=== PATIENT | male | born 1960 ===

== ENCOUNTER 2021-07-28 10:29 | Day surgery (SDC) | payer OTHER ==
[~2021-07-28] VITALS: Ht 180.3 cm; Wt 93.8 kg
[2021-07-28] MEDS ORDERED: FISH OIL 1000MG1 CAP PO (11:03)
[2021-07-28] MEDS ORDERED: LIPITOR 40MG TA40 MG PO (11:03)
[2021-07-28] MEDS ORDERED: GLUCOPHAGE500 MG/TAB PO (11:03)
[2021-07-28] MEDS ORDERED: PRINIVIL40 MG PO (11:04)
[2021-07-28] MEDS ORDERED: ZYRTEC 10MG10 MG PO (11:04)
[2021-07-28] MEDS ORDERED: VITAMIN D31000 IU PO (11:04)
[2021-07-28] MEDS ORDERED: MOBIC 7.5MG7.5 MG PO (11:05)
[2021-07-28] MEDS ORDERED: GLUCOSAMINE SU500 M2 PO (11:05)
[2021-07-28] MEDS ORDERED: CENTRUM SILVER CHEW PO (11:06)
[2021-07-28 11:28] VITALS: BP 131/84; PULSE 71; TEMP 98.1
[2021-07-28] MEDS ORDERED: NORCO 325 MG-51 TAB PO (12:41)
[2021-07-28 15:10] VITALS: BP 119/80; PULSE 61; TEMP 98.4
--- NOTE | 2021-07-28 15:10 | NUR ---
Patient arrived back into [facility] following PACU. Report received from ALEJANDRA Sauceda. Patient alert and awake, no complaint of pain or nausea. notified that patient was back into recovery room. Patient requesting blueberry muffin and pepsi, tolerating both well.
[2021-07-28 15:25] VITALS: BP 119/71; PULSE 75
--- NOTE | 2021-07-28 15:25 | NUR ---
Patient doing well. No complaint of pain or nausea with food or drink. Vital signs stable.
[2021-07-28 15:40] VITALS: BP 125/71; PULSE 71
--- NOTE | 2021-07-28 15:40 | NUR ---
Patient reports no pain, no nausea. Tolerated food and drink well. Patient went to restroom and was able to void. Got dressed independently. Went through discharge instructions with patient. Questions answered, patient verbalized understanding to instructions.
--- NOTE | 2021-07-28 16:00 | NUR ---
Escorted patient to emergency department entrance via wheelchair. Met patient's . Patient independently got into personal vehicle. Went through discharge instructions with patient's . Questions answered. Left patient in the care of his , Emily.
== END 2021-07-28 16:00 | disposition home or self-care (01) ==
LOC: SDCO 10:29
DX: K40.21 Bilateral inguinal hernia, without obstruction or gangrene, recurrent (principal); I10 Essential (primary) hypertension; E78.5 Hyperlipidemia, unspecified; M19.90 Unspecified osteoarthritis, unspecified site; F43.10 Post-traumatic stress disorder, unspecified; E11.9 Type 2 diabetes mellitus without complications; E78.00 Pure hypercholesterolemia, unspecified; Z79.84 Long term (current) use of oral hypoglycemic drugs; Z79.899 Other long term (current) drug therapy; Z80.3 Family history of malignant neoplasm of breast; Z83.3 Family history of diabetes mellitus; Z82.3 Family history of stroke
CPT/HCPCS: C1781; J0690; J1885; J2405; J2704; J3010; J7030